=== PATIENT | female | born 1970 | race American Indian/Alaskan Native ===

== ENCOUNTER 2017-06-12 08:13 | Outpatient (CLI) | payer BC ==
--- NOTE | 2017-06-12 14:40 | Mammography Report ---
BILATERAL DIGITAL SCREENING MAMMOGRAM with CAD : 06/12/17 08:13:00 CLINICAL: Routine screening. COMPARISON:06/12/16 FINDINGS: The breasts are heterogeneously dense, which may obscure small masses.Stable low-density oval right upper outer circumscribed mass biopsied. Scattered bilateral benign calcifications. No new mass, architectural distortion or suspicious calcifications. IMPRESSION: No mammographic evidence of malignancy. BI-RADS CATEGORY: 2 -- Benign RECOMMENDATION: Routine mammographic screening in one year. COMMENT: Patient follow-up letters are generated by our [employer] application.
== END 2017-06-12 08:14 | disposition home or self-care (01) ==
LOC: SPVWC 08:13
PROVIDERS: ATTEND Obstetrics & Gynecology
DX: Z12.31 Encounter for screening mammogram for malignant neoplasm of breast (principal); I10 Essential (primary) hypertension; D64.9 Anemia, unspecified
CPT/HCPCS: 77067; G0202

== ENCOUNTER 2018-12-28 21:30 | Emergency (ER) | payer BC ==
[2018-12-28 23:35] LABS: Basophils # (Auto) 0.1 K/mm3 (0.0-0.1); Basophils % (Auto) 1.4 % (0.0-1.8); Eosinophils # (Auto) 0.1 K/mm3 (0.0-0.4); Eosinophils % (Auto) 1.3 % (0.0-4.3); Hematocrit 34.8 % (30.3-42.9); Hemoglobin 10.9 gm/dl (10.1-14.3); Lymphocytes % (Auto) 34.4 % (13.4-35.0); Mean Corpuscular HGB Conc 31 % (30-34); Mean Corpuscular Volume 79 fl (79-97); Monocytes # (Auto) 0.6 K/mm3 (0.0-0.8); Monocytes % (Auto) 6.7 % (0.0-7.3); Platelet Count 474 K/mm3 (140-440); Red Blood Count 4.41 M/mm3 (3.65-5.03); Red Cell Distribution Width 15.7 % (13.2-15.2)
[2018-12-28 23:53] LABS: Alanine Aminotransferase 14 units/L (7-56); Albumin 3.8 g/dL (3.9-5); BUN/Creatinine Ratio 11; Blood Urea Nitrogen 11 mg/dL (7-17); Calcium 9.4 mg/dL (8.4-10.2); Hemolysis Index 1
--- NOTE | 2018-12-29 04:49 | XRay Report ---
CHEST PA AND LATERAL VIEWS INDICATION: cp, palpitations. COMPARISON: None. FINDINGS: Support devices: None. Heart: Within normal limits. Lungs/Pleura: No acute pulmonary or pleural findings. IMPRESSION: 1. No significant abnormality. Signer Name: Chet Ennis MD Signed: 12/29/2018 4:45 AM Workstation Name: [id number]
--- NOTE | 2018-12-29 05:10 | Emergency Department Report ---
ED Chest Pain HPI - General Chief Complaint: Chest Pain Stated Complaint: CHEST/ARM PAIN Time Seen by Provider: 12/29/18 03:49 Source: patient, old records reviewed Mode of arrival: Ambulatory Limitations: No Limitations - History of Present Illness Initial Comments: 48-year-old female with a past medical history of obesity and hypertension presents to the hospital complaining of intermittent chest pain 2-3 weeks. Patient states her pain is in the sternal area described as sharp and intermittent. She denies aggravating or alleviating factors. Recently she's had intermittent sharp pain to her left calf and pain seemed to spread all the way up to her left chest and down her left arm. She is having intermittent palpitations that are worse at night and feels like her heart is fluttering and beating hard. She denies shortness of breath, nausea, vomiting, diaphoresis, recent travel, history of PE/DVT, or hormone therapy. She also denies URI symptoms or cough. Patient denies personal history of smoking, family history of CAD, personal with history of diabetes or elevated cholesterol. Recently her primary care doctor has been changing her BP medications. Patient had adverse reactions to lisinopril, Norvasc, and a third BP medication. Patient stopped all her BP medications 3-4 days ago due to side effects and is planning to follow up her doctor for medication adjustment. Severity scale (0 -10): 7 - Related Data Home Medications Medication Instructions Recorded Confirmed Last Taken Lisinopril/Hydrochlorothiazide 20 - 25 mg PO QDAY 03/20/13 01/30/14 01/30/14 08:30 [Lisinopril-Hctz 20-25 mg Tab] Ciprofloxacin HCl 500 mg PO BID 01/29/14 01/30/14 01/29/14 21:00 Previous Rx's Medication Instructions Recorded Last Taken Type Oxycodone HCl/Acetaminophen 1 each PO Q6HR PRN #20 tablet 01/28/14 01/28/14 05:00 Rx [Percocet 10-325 mg] Allergies Allergy/AdvReac Type Severity Reaction Status Date / Time No Known Allergies Allergy Verified 01/29/14 09:06 Heart Score - HEART Score History: Slightly suspicious EKG: Normal Age: 45-65 Risk factors: 1-2 risk factors Troponin: < normal limit HEART Score: 2 ED Review of Systems ROS: Stated complaint: CHEST/ARM PAIN Other details as noted in HPI Comment: All other systems reviewed and negative ED Past Medical Hx - Past Medical History Previous Medical History?: Yes Hx Hypertension: Yes (TAKES DIURETIC K+ 01/28/14 3.3 IN ER) Hx Congestive Heart Failure: No Hx Diabetes: No Hx Kidney Stones: Yes Hx Asthma: No Hx COPD: No Additional medical history: Functional constipation. KIDNEY STONES - Surgical History Past Surgical History?: Yes Additional Surgical History: colectomy mar 2013 , endometrial ablation, MCL repair, rectocele repair, tubal ligation, tonsillectomy, tummy tuck - Social History Smoking Status: Never Smoker - Medications Home Medications: Home Medications Medication Instructions Recorded Confirmed Last Taken Type Lisinopril/Hydrochlorothiazide 20 - 25 mg PO QDAY 03/20/13 01/30/14 01/30/14 08:30 History [Lisinopril-Hctz 20-25 mg Tab] Oxycodone HCl/Acetaminophen 1 each PO Q6HR PRN #20 tablet 01/28/14 01/30/14 01/28/14 05:00 Rx [Percocet 10-325 mg] Ciprofloxacin HCl 500 mg PO BID 01/29/14 01/30/14 01/29/14 21:00 History ED Physical Exam - General Limitations: No Limitations - Other Other exam information: General: No limitations, patient is alert in no acute distress Head exam: Atraumatic, normocephalic Eyes exam: Normal appearance, pupils equal reactive to light, extraocular movements intact ENT: Moist mucous membrane, normal oropharynx Neck exam: Normal inspection, full range of motion, no meningismus nontender Respiratory exam: Clear to auscultation bilateral, no wheezes, rales, crackles Cardiovascular: Normal rate and rhythm Abdomen: Soft, nondistended, and nontender, with normal bowel sounds, no rebound, or guarding Extremity: Full range of motion normal inspection no deformity, no calf tenderness or edema Back: Normal Inspection, full range of motion, no tenderness Neurologic: Alert, oriented x3, cranial nerves intact, no motor or sensory deficit Psychiatric: normal affect, normal mood Skin: Warm, dry, intact ED Course Vital Signs 12/28/18 12/28/18 12/29/18 21:37 22:52 00:44 Temperature 98.2 F 98.2 F Pulse Rate 93 H 90 77 Respiratory 18 18 17 Rate Blood Pressure 154/87 Blood Pressure 182/87 [Left] O2 Sat by Pulse 99 100 Oximetry 12/29/18 12/29/18 12/29/18 00:45 00:50 01:00 Temperature 98.5 F Pulse Rate 78 79 77 Respiratory 19 16 20 Rate Blood Pressure 151/73 147/84 Blood Pressure 151/73 [Left] O2 Sat by Pulse 99 100 100 Oximetry 12/29/18 12/29/18 12/29/18 01:15 01:31 01:45 Temperature Pulse Rate 85 77 75 Respiratory 19 18 17 Rate Blood Pressure 147/84 147/84 147/84 Blood Pressure [Left] O2 Sat by Pulse 98 97 97 Oximetry 12/29/18 12/29/18 12/29/18 02:00 02:15 02:31 Temperature Pulse Rate 77 75 73 Respiratory 16 16 14 Rate Blood Pressure 154/77 154/77 154/77 Blood Pressure [Left] O2 Sat by Pulse 97 96 99 Oximetry 12/29/18 12/29/18 12/29/18 02:45 03:00 04:00 Temperature Pulse Rate 85 81 82 Respiratory 22 16 16 Rate Blood Pressure 154/77 141/81 151/83 Blood Pressure [Left] O2 Sat by Pulse 99 96 100 Oximetry - Reevaluation(s) Reevaluation #1: 12/29/18 05:09 Patient pain free during my evaluation ONEYDA score - Oneyda Score Age > 65: (0) No Aspirin use within the Past 7 Days: (0) No 3 or more CAD Risk Factors: (0) No 2 or more Angina events in past 24 hrs: (0) No Known CAD with more than 50% Stenosis: (0) No Elevated Cardiac Markers: (0) No ST Deviation Greater than 0.5mm: (0) No ONEYDA Score: 0 ED Medical Decision Making - Lab Data Result diagrams: 12/28/18 23:01 12/28/18 23:01 Lab Results 12/28/18 12/28/18 12/28/18 Range/Units 23:01 23:01 23:01 WBC 8.8 (4.5-11.0) K/mm3 RBC 4.41 (3.65-5.03) M/mm3 Hgb 10.9 (10.1-14.3) gm/dl Hct 34.8 (30.3-42.9) % MCV 79 (79-97) fl MCH 25 L (28-32) pg MCHC 31 (30-34) % RDW 15.7 H (13.2-15.2) % Plt Count 474 H (140-440) K/mm3 Lymph % (Auto) 34.4 (13.4-35.0) % Mcnairy % (Auto) 6.7 (0.0-7.3) % Eos % (Auto) 1.3 (0.0-4.3) % Baso % (Auto) 1.4 (0.0-1.8) % Lymph # 3.0 (1.2-5.4) K/mm3 Mcnairy # 0.6 (0.0-0.8) K/mm3 Eos # 0.1 (0.0-0.4) K/mm3 Baso # 0.1 (0.0-0.1) K/mm3 Seg Neutrophils % 56.2 (40.0-70.0) % Seg Neutrophils # 4.9 (1.8-7.7) K/mm3 D-Dimer 230.38 (0-234) ng/mlDDU Sodium 143 (137-145) mmol/L Potassium 4.0 (3.6-5.0) mmol/L Chloride 105.6 (98-107) mmol/L Carbon Dioxide 29 (22-30) mmol/L Anion Gap 12 mmol/L BUN 11 (7-17) mg/dL Creatinine 1.0 (0.7-1.2) mg/dL Estimated GFR > 60 ml/min BUN/Creatinine Ratio 11 % Glucose 96 (65-100) mg/dL Calcium 9.4 (8.4-10.2) mg/dL Total Bilirubin 0.20 (0.1-1.2) mg/dL AST 16 (5-40) units/L ALT 14 (7-56) units/L Alkaline Phosphatase 75 (35-129) units/L Troponin T (0.00-0.029) ng/mL Total Protein 6.5 (6.3-8.2) g/dL Albumin 3.8 L (3.9-5) g/dL Albumin/Globulin Ratio 1.4 % 12/28/18 12/29/18 Range/Units 23:01 04:21 WBC (4.5-11.0) K/mm3 RBC (3.65-5.03) M/mm3 Hgb (10.1-14.3) gm/dl Hct (30.3-42.9) % MCV (79-97) fl MCH (28-32) pg MCHC (30-34) % RDW (13.2-15.2) % Plt Count (140-440) K/mm3 Lymph % (Auto) (13.4-35.0) % Mcnairy % (Auto) (0.0-7.3) % Eos % (Auto) (0.0-4.3) % Baso % (Auto) (0.0-1.8) % Lymph # (1.2-5.4) K/mm3 Mcnairy # (0.0-0.8) K/mm3 Eos # (0.0-0.4) K/mm3 Baso # (0.0-0.1) K/mm3 Seg Neutrophils % (40.0-70.0) % Seg Neutrophils # (1.8-7.7) K/mm3 D-Dimer (0-234) ng/mlDDU Sodium (137-145) mmol/L Potassium (3.6-5.0) mmol/L Chloride (98-107) mmol/L Carbon Dioxide (22-30) mmol/L Anion Gap mmol/L BUN (7-17) mg/dL Creatinine (0.7-1.2) mg/dL Estimated GFR ml/min BUN/Creatinine Ratio % Glucose (65-100) mg/dL Calcium (8.4-10.2) mg/dL Total Bilirubin (0.1-1.2) mg/dL AST (5-40) units/L ALT (7-56) units/L Alkaline Phosphatase (35-129) units/L Troponin T < 0.010 < 0.010 (0.00-0.029) ng/mL Total Protein (6.3-8.2) g/dL Albumin (3.9-5) g/dL Albumin/Globulin Ratio % - EKG Data EKG shows normal: sinus rhythm, axis (qrs 48), QRS complexes (qrsd 83), ST-T waves (no stemi/t inv) Rate: normal - Radiology Data Radiology results: report reviewed CHEST PA AND LATERAL VIEWS INDICATION: cp, palpitations. COMPARISON: None. FINDINGS: Support devices: None. Heart: Within normal limits. Lungs/Pleura: No acute pulmonary or pleural findings. IMPRESSION: 1. No significant abnormality. - Medical Decision Making Chest pain is atypical for cardiac. EKG is normal. D-dimer is negative. Patient has a low heart score and ONEYDA score with 2 negative troponins. She will be discharged home with atypical chest pain with associated palpitations. Cardiology follow-up will be advised as well as PMD follow-up. - Differential Diagnosis pulmonary embolism, costochondritis, arrhythmias, [place], unstable angina Critical Care Time: No Critical care attestation.: If time is entered above; I have spent that time in minutes in the direct care of this critically ill patient, excluding procedure time. ED Disposition Clinical Impression: Atypical chest pain, Palpitations, Chronic hypertension Disposition: TO HOME OR SELFCARE Is pt being admited?: No Does the pt Need Aspirin: No Condition: Stable Instructions: Chest Pain (ED), Hypertension (ED), Palpitations (ED) Additional Instructions: Take Motrin or Tylenol as seated for pain. Follow up with your doctor or the clinic/doctor provided. It is also very important that you follow up with a mmd unit teacher. Return if symptoms worsen as indicated by your discharge instructions Referrals: KELLY ROCHA MD [Staff Physician] - 3-5 Days ([facility]) ASHLEY SCOTT MD [Primary Care Provider] - 2-3 Days Time of Disposition: 05:12
[2018-12-29 05:21] VITALS: BP 154/78
== END 2018-12-29 05:30 | disposition home or self-care (01) ==
LOC: ED 21:30
DX: R07.89 Other chest pain (principal); R00.2 Palpitations; I10 Essential (primary) hypertension; E66.9 Obesity, unspecified; K59.00 Constipation, unspecified; Z87.442 Personal history of urinary calculi; Z98.890 Other specified postprocedural states; Z90.49 Acquired absence of other specified parts of digestive tract; Z90.89 Acquired absence of other organs
CPT/HCPCS: 36415; 71046; 80053; 84484; 85025; 85379; 93005; 93010

== ENCOUNTER 2019-03-03 07:50 | Day surgery (SDC) | payer BC, MEDICARE ==
[2019-03-03] MEDS ORDERED: LOPRESSOR ONE (08:42)
[2019-03-03] MEDS ORDERED: LOPRESSOR PO ONE ×2 (08:43→09:30)
[2019-03-03] MEDS ORDERED: ATROPINE IV ONE (08:44)
[2019-03-03] MEDS ORDERED: LOPRESSOR IV SCH (09:00)
[2019-03-03] MEDS ORDERED: ATROPINE 0.1% (CARDIAC) IV NR (09:30)
[2019-03-03] MEDS ORDERED: NITROSTAT SL ONE (09:30)
[2019-03-03 09:52] LABS: BUN/Creatinine Ratio 14; Blood Urea Nitrogen 11 mg/dL (7-17); Calcium 8.9 mg/dL (8.4-10.2); Hemolysis Index 7
[2019-03-03 11:56] VITALS: BP 152/80
--- NOTE | 2019-03-04 07:57 | Cat Scan Report ---
LIMITED CTA CHEST Indication: Limited evaluation of the chest associated with cardiac CTA exam. Technique: Arterial phase technique utilized to evaluate the carotid arteries. Please refer to the of ficial cardiac CTA report for contrast details. All CT scans at this location are performed using CT dose reduction for ALARA by means of automated exposure control. Findings: No pathologic adenopathy. Visualized lungs are clear. There are degenerative changes in the spine with no acute osseous abnormality. Limited imaging through the upper abdomen shows nothing acute. Impression: No significant incidental finding. Signer Name: Ramirez Parsons Jr, MD Signed: 03/04/2019 7:52 AM Workstation Name: [id number]
== END 2019-03-03 11:50 | disposition home or self-care (01) ==
LOC: CATHLABREC 07:50 → EDSTATUS 08:45 → CATHLABREC 11:50
PROVIDERS: ATTEND Internal Medicine Cardiovascular Disease
DX: R07.2 Precordial pain (principal); M47.899 Other spondylosis, site unspecified; I10 Essential (primary) hypertension; Z98.51 Tubal ligation status; Z90.710 Acquired absence of both cervix and uterus; Z98.891 History of uterine scar from previous surgery; Z87.442 Personal history of urinary calculi; Z79.899 Other long term (current) drug therapy; Z98.890 Other specified postprocedural states; Z86.2 Personal history of diseases of the blood and blood-forming organs and certain disorders involving the immune mechanism
CPT/HCPCS: 36415; 75574; 80048; Q9967; J0461

== ENCOUNTER 2019-06-23 08:26 | Outpatient (CLI) | payer MEDICAID, MEDICARE ==
--- NOTE | 2019-06-23 10:19 | Mammography Report ---
DIGITAL SCREENING MAMMOGRAM WITH CAD, 06/23/2019 INDICATION: Routine screening mammography. TECHNIQUE: Digital bilateral 2D mammography was obtained in the craniocaudal and mediolateral obliq ue projections. This examination was interpreted with the benefit of Computer-Aided Detection analysi s. COMPARISON: 06/17/2018 FINDINGS: Breast Density: The breasts are heterogeneously dense, which may obscure small masses. There is no evidence of new mass, suspicious calcifications or architectural distortion in either fei ast. Stable circumscribed right upper outer mass with a biopsy clip. IMPRESSION: No mammographic evidence of malignancy. Follow up recommendation: Routine yearly BI-RADS Category 2: Benign. A "normal" or negative report should not discourage follow up or biopsy of a clinically significant f inding. A written summary of these findings will be mailed to the patient. The patient will be entered into a mammography reporting system which will generate a reminder letter for the patient's next appointmen t at the appropriate interval. The [employer] recommends yearly mammograms starting at age 40 and continuing as l zeeshan as a woman is in good health. Breast MRI is recommended for women with an approximate 20-25% or greater lifetime risk of breast cancer, including women with a strong family history of breast or ova duane cancer or who have been treated for Hodgkin's disease. Signer Name: Anil Perez MD Signed: 06/23/2019 10:15 AM Workstation Name: [id number]
== END 2019-06-23 08:27 | disposition home or self-care (01) ==
LOC: MAMMO 08:26
PROVIDERS: ATTEND Obstetrics & Gynecology
DX: Z12.31 Encounter for screening mammogram for malignant neoplasm of breast (principal)
CPT/HCPCS: 77067

== ENCOUNTER 2021-04-20 07:11 | Outpatient (CLI) | payer OTHER ==
--- NOTE | 2021-04-20 14:16 | Mammography Report ---
DIGITAL SCREENING MAMMOGRAM WITH CAD, 04/20/2021 CLINICAL INFORMATION / INDICATION: Routine screening mammography. SCREENING MAMMOGRAM TECHNIQUE: Digital bilateral 2D mammography was obtained in the craniocaudal and mediolateral obliqu e projections. This examination was interpreted with the benefit of Computer-Aided Detection analysis . COMPARISON: 04/25/2012 through 06/23/2019. FINDINGS: Breast Density: There are scattered areas of fibroglandular density. No dominant mass, suspicious calcifications, or architectural distortion in either breast. A small benign-appearing nodule in the right upper outer quadrant with an associated biopsy clip is s table. There are a few benign scattered calcifications bilaterally. IMPRESSION: No mammographic evidence of malignancy. Follow up recommendation: Routine yearly BI-RADS Category 2: Benign. A "normal" or negative report should not discourage follow up or biopsy of a clinically significant f inding. A written summary of these findings will be mailed to the patient. The patient will be entered into a mammography reporting system which will generate a reminder letter for the patient's next appointmen t at the appropriate interval. The [employer] recommends yearly mammograms starting at age 40 and continuing as l zeeshan as a woman is in good health. Breast MRI is recommended for women with an approximate 20-25% or greater lifetime risk of breast cancer, including women with a strong family history of breast or ova duane cancer or who have been treated for Hodgkin's disease. Signer Name: Alejandro Salinas MD Signed: 04/20/2021 2:12 PM Workstation Name: [id number]
== END 2021-04-20 07:12 | disposition home or self-care (01) ==
LOC: MAMMO 07:11
PROVIDERS: ATTEND Obstetrics & Gynecology
DX: Z12.31 Encounter for screening mammogram for malignant neoplasm of breast (principal); N63.11 Unspecified lump in the right breast, upper outer quadrant
CPT/HCPCS: 77067